=== PATIENT | female | born 1985 | race Caucasian/White ===

== ENCOUNTER 2019-11-02 20:08 | Emergency (ER) | payer BC, MEDICAID, OTHER ==
[~2019-11-02] VITALS: Ht 157.5 cm; Wt 66.1 kg
[2019-11-02 20:28] VITALS: BP 127/85
--- NOTE | 2019-11-02 20:39 | NUR ---
PT HERE WITH C/O STUBBED TOE ON THE LEFT BIG TOE, STATES ALSO INFECTION.
[2019-11-02] MEDS ORDERED: KETOROLAC 30 MG/1 ML ONE (20:42)
--- NOTE | 2019-11-02 20:44 | NUR ---
PT MEDICATED PER ORDER.
[2019-11-02] MEDS ORDERED: KETOROLAC 30 MG/1 ML IM ONE (21:00)
[2019-11-02] MEDS ORDERED: LIDOCAINE-MPF 1%, 5ML ONE (21:54)
[2019-11-02] MEDS ORDERED: LIDOCAINE 1%, 10ML INFIL ONE (22:00)
--- NOTE | 2019-11-02 22:04 | NUR ---
report to malcolm scanlon Provider at bedside- to remove toenail after lidocaine administration
== END 2019-11-02 22:39 | disposition home or self-care (01) ==
LOC: ED 22:33
DX: S90.112A Contusion of left great toe without damage to nail, initial encounter (principal); G89.11 Acute pain due to trauma; L60.0 Ingrowing nail; Z87.891 Personal history of nicotine dependence; X58.XXXA Exposure to other specified factors, initial encounter; Y93.89 Activity, other specified; Y92.098 Other place in other non-institutional residence as the place of occurrence of the external cause; Y99.8 Other external cause status
CPT/HCPCS: 11730; 73660; 96372; 99283; J1885; J3490